=== PATIENT | male | born 1940 | race Caucasian/White ===

== ENCOUNTER 2020-10-15 08:44 | Day surgery (SDC) | payer MEDICARE ==
[~2020-10-15] VITALS: Ht 177.8 cm; Wt 81.0 kg
[~2020-10-15 08:44] MED LIST: AMIO200T61 PO; BUPIVAcaine/PF 2.5 mg/ml (0.25%) 30ml vial ONE; CARV6.253 PO; DOCUMENT DATE & TIME OF BETA-BLOCKER PO ONE; FENO48TA9 PO; FURO40TA4 PO; HYDR-4070 PO; LEVO125T8 PO; POTA10TA10 PO; cefazolin/dext.iso 2gm/100ml IV ONE; famotidine 20mg tablet PO ONE; ringers solution, lacted 1,000 ML IV SCH
[2020-10-15] MEDS ORDERED: ipratropium/albuterol 3ml nebule IH STA (09:32)
[2020-10-15 10:11] LABS: BASOPHILS % (AUTO) 0.6 % (0-1); EOSINOPHILS # (AUTO) 0.1 X10'3 (0-0.9); EOSINOPHILS % (AUTO) 1.4 % (0-6); LYMPHOCYTES # (AUTO) 0.9 X10'3 (1.1-4.8); LYMPHOCYTES % (AUTO) 17.7 % (21-51); MEAN CORPUSCULAR HEMOGLOBIN 32.5 PG (27.0-31.0); MEAN CORPUSCULAR VOLUME 95.5 FL (78-98); MEAN PLATELET VOLUME 7.9 FL (7.4-10.4); MONOCYTES # (AUTO) 0.4 X10'3 (0-0.9); MONOCYTES % (AUTO) 7.8 % (2-12); NEUTROPHILS # (AUTO) 3.7 X10'3 (1.8-7.7); NEUTROPHILS % (AUTO) 72.5 % (42-75); PRE OP HEMATOCRIT 39.6 % (42.0-52.0); PRE OP HEMOGLOBIN 13.5 g/dL (14.0-17.9); PRE OP PLATELET COUNT 157 X10'3 (140-440); RED BLOOD COUNT 4.14 X10'6 (4.70-6.10); RED CELL DISTRIBUTION WIDTH 15.6 % (11.5-14.5)
[2020-10-15 10:15] VITALS: BP 182/82
[2020-10-15 10:20] LABS: ABG BASE EXCESS 1.7 mmol/L (-2.0-2.0); ABG HCO3 25.9 mmol/L (22.0-26.0); ABG OXYGEN SATURATION 91.8 % (94-97); ABG PCO2 (T) 39.6 mmHg (35.0-48.0); ABG PO2 (T) 63.3 mmHg (75.0-100.0); ALLEN'S TEST POSITIVE; FCOHb 1.1 % (0.0-3.9); FLOW 3 L/min; FO2Hb 90.8 % (94-97); TOTAL HEMOGLOBIN 13.6 G/dl (14.0-18.0)
[2020-10-15 10:26] LABS: ALBUMIN 3.7 G/DL (3.4-5.0); ALBUMIN/GLOBULIN RATIO 1.1 (1.1-1.5); ALKALINE PHOSPHATASE 70 IU/L (46-116); BLOOD UREA NITROGEN 31 MG/DL (7-18); CHLORIDE 106 MMOL/L (99-107); CREATININE 1.55 MG/DL (0.60-1.10); PRE OP ALT 28 U/L (30-65); PRE OP ANION GAP 8 (8-16); PRE OP BILIRUB, TOTAL 1.6 MG/DL (0.0-1.0); PRE OP GLUCOSE 91 MG/DL (70-104); PRE OP SODIUM 143 MMOL/L (135-145); TOTAL CARBON DIOXIDE 28.7 MMOL/L (24-32); TOTAL PROTEIN 7.2 G/DL (6.4-8.2); eGFR 43 ML/MIN
[2020-10-15 10:35] VITALS: BP 182/82
[2020-10-15 10:38] LABS: PRE OP AST 31 U/L (10-37); PRE OP POTASSIUM 4.4 MMOL/L (3.4-5.1)
[2020-10-15] MEDS ORDERED: LIDOcaine 1% W/epiNEPHrine 1:100,000 20ml vial ONE ×2 (12:09→12:17)
[2020-10-15] MEDS ORDERED: BUPIVAcaine/PF 2.5 mg/ml (0.25%) 30ml vial ONE (12:17)
[2020-10-15] MEDS ORDERED: midazolam 1 mg/ML 2ml injection ONE (12:21)
[2020-10-15] MEDS ORDERED: fentaNYL/PF 50MCG/1 ML 2ML syringe ONE (12:21)
[2020-10-15 13:05] VITALS: BP 149/83
[2020-10-15] MEDS ORDERED: proCHLORperazine 10 MG/2 ml inj IV PRN (13:05)
[2020-10-15] MEDS ORDERED: meperidine/PF 25mg/ml syringe IV PRN ×2 (13:05)
[2020-10-15] MEDS ORDERED: ondansetron/PF 4mg/2ml inj IV PRN (13:05)
[2020-10-15] MEDS ORDERED: ringers solution, lacted 1,000 ML IV SCH (13:05)
--- NOTE | 2020-10-15 13:05 | NUR ---
ADMITTED TO PACU FROM OR ACCOMPANIED BY ANESTHESIA. INTIAL PHYSICAL ASSESSMENT DONE AND RECORDED. REPORT RECEIVED FROM ANESTHESIA.
[2020-10-15 13:15] VITALS: BP 152/86
[2020-10-15 13:25] VITALS: BP 159/80
--- NOTE | 2020-10-15 14:00 | NUR ---
DISCHARGE CRITERIA MET, DISCHARGE INSTRUCTIONS GIVEN TO RN WELLNESS, DEMONSTRATES VERBAL UNDERSTANDING. DISCHARGED HOME IN GOOD CONDITION.
== END 2020-10-15 14:00 | disposition home or self-care (01) ==
LOC: PAS 08:44
PROVIDERS: ATTEND Surgery
DX: L72.0 Epidermal cyst (principal); K21.9 Gastro-esophageal reflux disease without esophagitis; I13.0 Hypertensive heart and chronic kidney disease with heart failure and stage 1 through stage 4 chronic kidney disease, or unspecified chronic kidney disease; I50.9 Heart failure, unspecified; N18.4 Chronic kidney disease, stage 4 (severe); G47.33 Obstructive sleep apnea (adult) (pediatric); I48.0 Paroxysmal atrial fibrillation; E03.9 Hypothyroidism, unspecified; Z20.822 Contact with and (suspected) exposure to COVID-19; Z79.899 Other long term (current) drug therapy; Z95.0 Presence of cardiac pacemaker; Z98.890 Other specified postprocedural states; R52 Pain, unspecified
CPT/HCPCS: 11424; 12042; 36415; 36600; 71045; 80053; 82803; 82948; 85018; 85025; 87635; 94640; C9803; J2250; J3010; J3490; J7120; Z7506; Z7512; 88304; A4618; A7000